=== PATIENT | male | born 2000 | race Caucasian/White ===

== ENCOUNTER 2024-03-11 21:10 | Emergency (ER) | payer OTHER, SELFPAY ==
[2024-03-11 21:11] VITALS: BP 144/94; PULSE 105; RESP 18; TEMP 37.6; O2SAT 98; BMI 24.3
--- NOTE | 2024-03-11 21:48 | CT_ITS ---
PROCEDURE INFORMATION: Exam: CT Lumbar Spine Without Contrast Exam date and time: 03/11/2024 9:56 PM Age: 23 years old Clinical indication: Low back pain; Additional info: Lumbar spine pain after fall TECHNIQUE: Imaging protocol: Computed tomography of the lumbar spine without contrast. Radiation optimization: All CT scans at this facility use at least one of these dose optimization techniques: automated exposure control; mA and/or kV adjustment per patient size (includes targeted exams where dose is matched to clinical indication); or iterative reconstruction. COMPARISON: No relevant prior studies available. FINDINGS: Bones/joints: No acute fracture. Normal alignment. L4/5 broad-based disc bulge.. No severe spinal canal stenosis. No significant neural foraminal narrowing. Soft tissues: Unremarkable. IMPRESSION: 1. No acute findings. 2. L4/5 broad-based disc bulge.
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
[2024-03-11] MEDS: ACETAMINOPHEN 500MG TAB 1000 MG PO (22:28)
[2024-03-11] MEDS: METHOCARBAMOL 500MG TABLET 750 MG PO (22:28)
[2024-03-11] MEDS: IBUPROFEN 800 MG TABLET PO (22:29)
[2024-03-11 22:38] VITALS: BP 121/85; PULSE 95; RESP 16; TEMP 36.6; O2SAT 96
== END 2024-03-11 22:40 | disposition home or self-care (01) ==
PROVIDERS: Emergency Provider Emergency Medicine; PCP Nurse Practitioner Family
DX: M51.27 Other intervertebral disc displacement, lumbosacral region (principal); S39.012A Strain of muscle, fascia and tendon of lower back, initial encounter; V86.59XA Driver of other special all-terrain or other off-road motor vehicle injured in nontraffic accident, initial encounter
CPT/HCPCS: 72131; 99284